=== PATIENT | male | born 1980 | race Caucasian/White ===

== ENCOUNTER 2016-05-27 08:16 | Emergency (ER) | payer MEDICAID ==
[~2016-05-27] VITALS: Wt 75.0 kg
[2016-05-27] MEDS ORDERED: LIDOCAINE 1% (MDV) 20 ML INJ SC ONE (09:00)
[2016-05-27] MEDS ORDERED: DIPHTH/TET/ACEL PERTUSS (ADULT) 0.5 ML VIAL IM* ONE (09:00)
[2016-05-27] MEDS ORDERED: HYDROCODONE/APAP (5/325) TAB PO ONE (09:30)
--- NOTE | 2016-05-27 10:34 | RADRPT ---
PROCEDURE: Left hand series CLINICAL INDICATION: Trauma and pain. TECHNIQUE: 3 views. COMPARISON: None FINDINGS: No acute fractures are noted. Degenerative changes are noted at the base of the fourth distal phalanx with a prominent osteophyte. No erosions are noted. There is normal bone mineralization. The soft tissues are unremarkable. IMPRESSION: 1. Prominent osteophyte off of the base of the fourth distal phalanx. 2. No acute bony abnormalities noted. RPTAT: [place] .Christian Buckley MD, Date Time Electronically viewed and signed by .Christian Buckley MD, on 05/27/2016 10:34 .G/
--- NOTE | 2016-05-27 10:46 | ERD ---
ER Documentation Chief Complaint Date/Time DATE: 05/27/16 TIME: 10:41 Chief Complaint LEFT INDEX AND MIDDLE FINGER LACERATION. 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 The patient's tetanus is not up-to-date. The patient denies any numbness, tingling, loss of function, or other symptoms and injuries. The patient is right-hand dominant. There are no other alleviating or exacerbating factors or symptoms to report at this time. ROS All systems reviewed and are negative except as per history of present illness. Medications Home Meds Active Scripts Cephalexin* (Keflex*) 500 Mg Capsule, 500 MG PO TID for 7 Days, #2 CAP Prov:VLADIMIR VELASQUEZ PA-C 05/27/16 Allergies Allergies: Coded Allergies: No Known Allergy (Unverified , 05/27/16) PMhx/Soc Medical and Surgical Hx: pt denies Surgical Hx History of Surgery: No Anesthesia Reaction: No Hx Neurological Disorder: No Hx Respiratory Disorders: No Hx Cardiac Disorders: Yes (HTN) Hx Psychiatric Problems: No Hx Miscellaneous Medical Probl: No Hx Alcohol Use: Yes ("ONLY A FEW DRINKS ON THE WEEKEND") Hx Substance Use: No Hx Tobacco Use: No Smoking Status: Never smoker FmHx Noncontributory for chief complaint Physical Exam Vitals Vital Signs Date Time Temp Pulse Resp B/P Pulse Ox O2 Delivery O2 Flow Rate FiO2 05/27/16 08:18 98.8 89 20 190/108 98 Physical Exam INITIAL VITAL SIGNS: Reviewed by me. GENERAL: Alert and interactive. No acute distress. HEAD: Head is normocephalic and atraumatic. EYES: EOMI. No scleral icterus. No conjunctival injection. ENT: Moist mucosa. NECK: Supple. Full range of motion. RESPIRATORY: Normal respiratory effort. Clear breath sounds bilaterally. No wheezing, rales, or rhonchi. CV: Regular rate and rhythm. Normal S1 S2. No S3 or S4. No murmurs. ABDOMEN: Soft, non-distended, non-tender. No guarding. No rebound. No masses. EXTREMITIES: No deformity. There is a 2 cm superficial laceration to the left second finger with mild active bleeding but no deformities or involvement of the tendons or ligamental structures. There is a 1 cm superficial laceration to the left third finger with mild active bleeding but no involvement of the tendons or ligamental structures. There is no decrease in function or strength of the left hand. There appears to be no involvement of tendons or ligamental structures on range of motion of the left hand and fingers. SKIN: There is a 2 cm superficial laceration to the left second finger with mild active bleeding but no deformities or involvement of the tendons or ligamental structures. There is a 1 cm superficial laceration to the left third finger with mild active bleeding but no involvement of the tendons or ligamental structures. NEUROLOGIC: Alert and oriented x 4. Speech is normal. Moves all extremities equally. No motor or sensory deficits noted. Results 24 hrs Current Medications Medications (Trade) Dose Ordered Sig/Jose Route PRN Reason Start Time Stop Time Status Last Admin Dose Admin Diphtheria/ Tetanus/Acell Pertussis (Adacel) 0.5 ml ONCE ONCE IM* 05/27/16 09:00 05/27/16 09:01 DC 05/27/16 08:46 Lidocaine (Xylocaine 1% (Mdv) 20 ml) 20 ml ONCE ONCE SC 05/27/16 09:00 05/27/16 09:01 DC Acetaminophen/ Hydrocodone Bitart ([place] (5/325)) 1 tab ONCE ONCE PO 05/27/16 09:30 05/27/16 09:31 DC 05/27/16 09:37 Procedures/MDM 35-year-old male presents secondary to complaints of laceration to his left second and third finger which occurred at approximately 7 AM today. On physical examination there appears to be no involvement of the tendons or ligamental structures. The wounds will be irrigated and sutured. See suture notes below. Laceration Repair 1 by me: Anesthesia: 1% lidocaine locally Location: Left second finger Tendon/Joint/Nerves: No injury Foreign body: None detected after copious irrigation and exploration Technique: Simple Interrupted Sutures Complexity: No subcutaneous sutures/mucosal repair/ edge excision Post Closure Length: 2 cm Patient's bleeding was easily controlled in the department and there is no indication of anemia. No evidence of compartment syndrome, neurologic injury, vascular injury, open joint, tendon laceration, or foreign body. Patient is appropriate for outpatient follow up. 48 hour wound check. Scar minimization instructions given. Laceration Repair 2 by me: Anesthesia: 1% lidocaine locally Location: Left third finger Tendon/Joint/Nerves: No injury Foreign body: None detected after copious irrigation and exploration Technique: Simple Interrupted Sutures Complexity: No subcutaneous sutures/mucosal repair/ edge excision Post Closure Length: 1 cm Patient's bleeding was easily controlled in the department and there is no indication of anemia. No evidence of compartment syndrome, neurologic injury, vascular injury, open joint, tendon laceration, or foreign body. Patient is appropriate for outpatient follow up. 48 hour wound check. Scar minimization instructions given. Three-view x-ray of the left hand interpreted by radiologist: PROCEDURE: Left hand series CLINICAL INDICATION: Trauma and pain. TECHNIQUE: 3 views. COMPARISON: None FINDINGS: No acute fractures are noted. Degenerative changes are noted at the base of the fourth distal phalanx with a prominent osteophyte. No erosions are noted. There is normal bone mineralization. The soft tissues are unremarkable. IMPRESSION: 1. Prominent osteophyte off of the base of the fourth distal phalanx. 2. No acute bony abnormalities noted. The patient was neurovascularly intact post laceration repair in the department. The patient was given prescription for oral cephalexin for 7 days. The patient was told to keep the area clean and dry. The patient is to return in 48 hours for wound recheck. The patient is to return in 10 days from now for suture removal. The patient understands instructions given. All questions and concerns were addressed. The patient was hemodynamically stable prior to discharge. Departure Diagnosis: Primary Impression: Laceration Condition: Stable Additional Instructions: Return in 48 hours for wound recheck. Return in 10 days from now for suture removal. Follow-up with your primary care physician within 1 week. Return to the emergency department immediately should you have any new or worsening symptoms, uncontrolled fevers, or other unexplained symptoms. Take all medications as directed. VLADIMIR VELASQUEZ PA-C May 27, 2016 10:46
[2016-05-27] MEDS ORDERED: CEPH-443 PO (10:48)
[2016-05-27] MEDS ORDERED: NICARDipine HCL 30 MG CAPSULE PO ONE (11:30)
[2016-05-27 12:14] VITALS: BP 159/93; PULSE 71; RESP 20; TEMP 98.1
== END 2016-05-27 12:00 | disposition home or self-care (01) ==
LOC: FTE 08:16
DX: S61.211A Laceration without foreign body of left index finger without damage to nail, initial encounter (principal); S61.213A Laceration without foreign body of left middle finger without damage to nail, initial encounter; I10 Essential (primary) hypertension; X58.XXXA Exposure to other specified factors, initial encounter; Y92.9 Unspecified place or not applicable; Z23 Encounter for immunization
CPT/HCPCS: 12002; 73130; 90471; 90715; Z7502; Z7610

== ENCOUNTER 2016-05-31 10:35 | Emergency (ER) | payer MEDICAID ==
[~2016-05-31] VITALS: Ht 157.5 cm; Wt 78.0 kg
[~2016-05-31 10:35] MED LIST: CEPH-443 PO
[2016-05-31 10:44] VITALS: Ht 157.5 cm; Wt 78.0 kg
--- NOTE | 2016-05-31 12:28 | ERD ---
ER Documentation Chief Complaint Date/Time DATE: 05/31/16 TIME: 12:25 Chief Complaint LAC 2ND,ERD DIGIT LEFT HAND HPI This patient is a 35-year-old male presenting for wound check of the right second and third digits after laceration repair 3 days ago. The patient reports extreme pain of his second finger which is worse while moving. The patient denies any discharge, warmth, fevers, or other symptoms at this time peer ROS All systems reviewed and are negative except as per history of present illness. Medications Home Meds Active Scripts Naproxen* (Naprosyn*) 500 Mg Tablet, 500 MG PO BID Y for PAIN AND/OR INFLAMMATION, #20 TAB Prov:VLADIMIR VELASQUEZ PA-C 05/31/16 Cephalexin* (Keflex*) 500 Mg Capsule, 500 MG PO TID for 7 Days, #2 CAP Prov:VLADIMIR VELASQUEZ PA-C 05/27/16 Allergies Allergies: Coded Allergies: No Known Allergy (Unverified , 05/27/16) PMhx/Soc History of Surgery: No Anesthesia Reaction: No Hx Neurological Disorder: No Hx Respiratory Disorders: No Hx Cardiac Disorders: Yes (HTN) Hx Psychiatric Problems: No Hx Miscellaneous Medical Probl: No Hx Alcohol Use: Yes ("ONLY A FEW DRINKS ON THE WEEKEND") Hx Substance Use: No Hx Tobacco Use: No FmHx Noncontributory for chief complaint Physical Exam Vitals Vital Signs Date Time Temp Pulse Resp B/P Pulse Ox O2 Delivery O2 Flow Rate FiO2 05/31/16 10:44 98.1 78 18 133/78 99 Physical Exam INITIAL VITAL SIGNS: Reviewed by me. GENERAL: Alert and interactive. No acute distress. HEAD: Head is normocephalic and atraumatic. EYES: EOMI. No scleral icterus. No conjunctival injection. ENT: Moist mucosa. NECK: Supple. Full range of motion. RESPIRATORY: Normal respiratory effort. Clear breath sounds bilaterally. No wheezing, rales, or rhonchi. CV: Regular rate and rhythm. Normal S1 S2. No S3 or S4. No murmurs. ABDOMEN: Soft, non-distended, non-tender. No guarding. No rebound. No masses. EXTREMITIES: Well-healing lacerations to the second and third fingers. SKIN: Warm and dry. NEUROLOGIC: Alert and oriented x 4. Speech is normal. Moves all extremities equally. No motor or sensory deficits noted. Procedures/MDM 35-year-old male presents for a wound check of his right second and third finger. On physical examination the patient has pain out of proportion and swelling about the PIP joint of the second finger. Low suspicion for Flexor Tenosynovitis, due to negative Kavanel's sign. X-rays that were taken originally were reexamined and there is no acute fracture as per radiologist report. Patient will be given referral for [facility]. The patient also be given a prescription for naproxen. The patient's questions and concerns were addressed. Departure Diagnosis: Primary Impression: Encounter for wound re-check Condition: Stable Referrals: [facility] Additional Instructions: No mas mejor en 2-3 ludwig, regresar. Mas peor en 24 horas, regresear rapidamente. Ir a doctor primario in 5-7 ludwig. Usar instrucciones cuando joe medicamento. VLADIMIR VELASQUEZ PA-C May 31, 2016 12:28
[2016-05-31] MEDS ORDERED: NAPR-260 PO (12:29)
== END 2016-05-31 14:16 | disposition home or self-care (01) ==
LOC: FTE 10:35
DX: Z48.01 Encounter for change or removal of surgical wound dressing (principal); I10 Essential (primary) hypertension
CPT/HCPCS: 99283

== ENCOUNTER 2017-09-05 22:43 | Emergency (ER) | END 2017-09-05 23:49 | disposition home or self-care (01) ==